=== PATIENT | female | born 1995 | race African-American/Black ===

== ENCOUNTER 2019-11-12 17:18 | Emergency (ER) | payer OTHER ==
[~2019-11-12] VITALS: Ht 160 cm; Wt 57.0 kg
[2019-11-12 17:25] VITALS: BP 142/90
[2019-11-12] MEDS ORDERED: HYDROCODONE/ACETAMINOPHEN 5/325MG TABLET PO STA (18:09)
[2019-11-12] MEDS ORDERED: IBUPROFEN 600MG TABLET PO STA (18:54)
== END 2019-11-12 21:00 | disposition home or self-care (01) ==
LOC: ER 17:18
DX: S39.012A Strain of muscle, fascia and tendon of lower back, initial encounter (principal); J45.909 Unspecified asthma, uncomplicated; V49.40XA Driver injured in collision with unspecified motor vehicles in traffic accident, initial encounter; Y93.89 Activity, other specified; Y92.89 Other specified places as the place of occurrence of the external cause; Y99.8 Other external cause status
CPT/HCPCS: 72100; 81025; 99284